=== PATIENT | female | born 1950 | race Caucasian/White ===

== ENCOUNTER → 2023-02-11 | Outpatient (CLI) | payer MEDICARE ==
--- NOTE | 2023-02-11 15:46 | Diagnostic Imaging Report ---
INDICATION: Broke shoulder a few weeks ago, falling off porch. TECHNIQUE: 2 views of the left shoulder CORRELATION STUDY: 01/30/2023 FINDINGS: Impacted humeral neck fracture again demonstrated. There is slight progressive dorsal rotation of the humeral head and progressive impaction particularly dorsally compared to prior. Glenohumeral joint appears stable. Acromioclavicular joint maintained. Soft tissue edema and joint effusion. IMPRESSION: 1. Progressive impaction humeral neck fracture with progressive dorsal displacement and rotation of the humeral head Dictated by: Dictated on workstation # [id number]
== END ==
LOC: ORTHO 12:35
PROVIDERS: ATTEND Orthopaedic Surgery
DX: S42.302A Unspecified fracture of shaft of humerus, left arm, initial encounter for closed fracture (principal)
CPT/HCPCS: 73030; G0463; 99203

== ENCOUNTER → 2023-02-25 | Outpatient (CLI) | payer MEDICARE ==
--- NOTE | 2023-02-25 19:46 | Diagnostic Imaging Report ---
INDICATION: Fracture COMPARED: 02/11/2023 FINDINGS: Fractures of the proximal humerus involve its head and neck with some endosteal and periosteal new bone formation consistent with partial healing in stable alignment. There is no dislocation. There has been no adverse development. IMPRESSION: Proximal humeral fracture is healing in stable alignment with no dislocation or adverse change. Dictated by: Dictated on workstation # [id number]
== END ==
LOC: ORTHO 13:30
PROVIDERS: ATTEND Orthopaedic Surgery
DX: S42.225D 2-part nondisplaced fracture of surgical neck of left humerus, subsequent encounter for fracture with routine healing (principal); X58.XXXD Exposure to other specified factors, subsequent encounter
CPT/HCPCS: 73030; 99213

== ENCOUNTER → 2023-03-27 | Outpatient (CLI) | payer MEDICARE ==
--- NOTE | 2023-03-27 12:26 | Diagnostic Imaging Report ---
INDICATION: Left shoulder fracture, follow-up. Two views of the left shoulder show a comminuted fracture of the proximal humerus. There is some callus formation. Position and alignment of the fracture components is stable compared to 02/25/2023. IMPRESSION: Stable alignment of the comminuted fracture of the proximal left humerus with some evidence of callus formation. Dictated by: Dictated on workstation # [id number]
== END ==
LOC: ORTHO 11:11
PROVIDERS: ATTEND Orthopaedic Surgery
DX: S42.225A 2-part nondisplaced fracture of surgical neck of left humerus, initial encounter for closed fracture (principal); X58.XXXA Exposure to other specified factors, initial encounter
CPT/HCPCS: 73030; G0463; 99213

== ENCOUNTER → 2023-04-30 | Outpatient (CLI) | payer MEDICARE ==
--- NOTE | 2023-04-30 10:12 | Diagnostic Imaging Report ---
CLINICAL HISTORY: Follow-up left humerus fracture. COMPARISON: 03/27/2023. TECHNIQUE: 2 views of the left shoulder. FINDINGS: There is stable alignment of the comminuted subacute fracture involving the proximal left humerus with stable angulation. The humeral head remains well aligned with the glenoid. No new fractures are seen. Included lungs are clear. IMPRESSION: 1. Stable subacute comminuted fracture involving the proximal left humerus. Dictated by: Dictated on workstation # [id number]
== END ==
LOC: ORTHO 09:51
PROVIDERS: ATTEND Orthopaedic Surgery
DX: S42.225D 2-part nondisplaced fracture of surgical neck of left humerus, subsequent encounter for fracture with routine healing (principal); X58.XXXD Exposure to other specified factors, subsequent encounter
CPT/HCPCS: 73030; G0463; 99213

== ENCOUNTER → 2023-07-01 | Outpatient (CLI) | payer MEDICARE ==
--- NOTE | 2023-07-01 09:30 | Diagnostic Imaging Report ---
INDICATION: Closed fracture of the proximal left humerus. COMPARISON: 04/30/2023. TECHNIQUE: Two radiographs of the left shoulder dated 07/01/2023. FINDINGS: The previously noted left humeral neck fracture is again identified. The fracture is mildly impacted with slight varus angulation. Mild sclerosis is noted about the fracture though persisting fracture lucencies do remain. The humeral head remains well seated within the glenoid. No new fracture or dislocation. No destructive osseous process. Surgical clips and a vascular stent overlie the left neck. Mild degenerative changes involving the acromioclavicular joint. IMPRESSION: Stable appearing subacute left humeral neck fracture. Minimal healing is present though significant persisting fracture lucencies remain. Recommend continued radiographic followup as developing partial nonunion is not excluded. No new acute osseous abnormality. Dictated by: Dictated on workstation # [id number]
== END ==
LOC: ORTHO 08:05
PROVIDERS: ATTEND Orthopaedic Surgery
DX: S42.202D Unspecified fracture of upper end of left humerus, subsequent encounter for fracture with routine healing (principal); X58.XXXD Exposure to other specified factors, subsequent encounter
CPT/HCPCS: 73030; G0463; 99213

== ENCOUNTER → 2023-09-30 | Outpatient (CLI) | payer MEDICARE ==
--- NOTE | 2023-09-30 09:02 | Diagnostic Imaging Report ---
CLINICAL INDICATION: Patient with closed fracture of the proximal left humerus about 8 months ago. EXAM: X-ray of the left shoulder, 2 views. COMPARISON: X-ray of the left shoulder dated 07/01/2023. FINDINGS AND IMPRESSION: 1: Again seen is the fracture of the proximal humeral neck with varus angulation. There is subtle progression of sclerosis in the fracture region but the lucency of the fracture still remains. 2: The remainder of this exam shows no significant interval change compared to the prior study of comparison. Dictated by: Dictated on workstation # [id number]
== END ==
LOC: ORTHO 08:07
PROVIDERS: ATTEND Orthopaedic Surgery
DX: S42.222G 2-part displaced fracture of surgical neck of left humerus, subsequent encounter for fracture with delayed healing (principal); X58.XXXD Exposure to other specified factors, subsequent encounter
CPT/HCPCS: 73030; G0463; 99213